=== PATIENT | female | born 1955 | race Caucasian/White ===

== ENCOUNTER 2017-05-18 12:24 | Emergency (ER) | payer OTHER ==
[~2017-05-18] VITALS: Ht 172.7 cm; Wt 54.9 kg
--- NOTE | 2017-05-18 12:31 | NUR ---
Code Stroke activated per Dr. Hussain kumar.
--- NOTE | 2017-05-18 12:33 | NUR ---
Telestroke called, Dr. Nixon spoke with Dr. Logan via telephone.
--- NOTE | 2017-05-18 12:38 | NUR ---
Pt to CT via [facility] with ACLS guidelines in place.
[2017-05-18 12:42] LABS: BASOPHILS % (AUTO) 0.6 % (0.0-2.0); EOSINOPHILS # (AUTO) 0.1 K/uL (0.0-0.7); EOSINOPHILS % (AUTO) 3.3 % (0.0-7.0); HEMATOCRIT 41.5 % (37-47); HEMOGLOBIN 13.7 G/DL (12.0-16.0); LYMPHOCYTES # (AUTO) 1.6 K/UL (0.8-4.8); LYMPHOCYTES % (AUTO) 38.8 % (20.5-51.5); MEAN CORPUSCULAR HEMOGLOBIN 29.1 UUG (27.0-31.0); MEAN CORPUSCULAR HGB CONC 33 g/dL (32.0-37.0); MEAN CORPUSCULAR VOLUME 88.3 FL (81.0-99.0); MONOCYTES # (AUTO) 0.4 K/UL (0.1-1.30); NEUTROPHILS # (AUTO) 2.2 K/UL (1.8-8.9); NEUTROPHILS % (AUTO) 48.3 % (38.5-71.5); PLATELET COUNT (AUTO) 280 K/UL (150-450); WHITE BLOOD COUNT (AUTO) 4.3 K/UL (4.0-11.2)
[2017-05-18] MEDS ORDERED: IV NORMAL SALINE 500 ML BAG IV ONE (12:45)
[2017-05-18 12:49] LABS: CREATININE 1.1 mg/dL (0.6-1.3); POTASSIUM 4.2 mmol/L (3.5-5.1)
[2017-05-18 12:54] LABS: BILIRUBIN,DIRECT 0.1 mg/dL (0.0-0.2); BILIRUBIN,TOTAL 0.4 mg/dL (0.2-1.0); TOTAL PROTEIN, SERUM 8.1 g/dL (6.4-8.2)
--- NOTE | 2017-05-18 13:06 | NUR ---
Patient is intermittently tearful & mild aphasia noted when patient is crying. Patient says that she is upset about the weakness of her hands & heaviness of her face.
[2017-05-18] MEDS ORDERED: ASPIRIN 325 MG TABLET PO ONE (13:15)
[2017-05-18 13:26] VITALS: BP 162/100
[2017-05-18] MEDS ORDERED: LABETALOL HCL 100 MG/20 ML VIAL IV ONE (13:30)
[2017-05-18] MEDS ORDERED: LABETALOL HCL 100 MG/20 ML VIAL ONE (13:34)
[2017-05-18] MEDS ORDERED: ASPIRIN 325 MG TABLET ONE (13:34)
--- NOTE | 2017-05-18 14:00 | NUR ---
Patient ambulated to the bathroom with steady gait. Patient says she feel much better, pending [facility] transfer information at this time.
--- NOTE | 2017-05-18 14:09 | NUR ---
Patient's doctor-friend is at bedside.
--- NOTE | 2017-05-18 14:47 | NUR ---
Patient Tranfers to outside Facility: [facility] room 5302-B Physician: Dr Tellez Location: [facility] [place] nurse : Katherine Mchugh south tel # [phone] ACLS ambulance: [id number]
--- NOTE | 2017-05-18 16:16 | NUR ---
[facility] ambulance is now here.
--- NOTE | 2017-05-18 16:23 | NUR ---
Nurse Enio Miller of [facility] ACLS ambulance accepted hands off report.
== END 2017-05-18 16:31 | disposition short-term general hospital (02) ==
LOC: ER 12:24
DX: G45.8 Other transient cerebral ischemic attacks and related syndromes (principal); G43.909 Migraine, unspecified, not intractable, without status migrainosus; E03.9 Hypothyroidism, unspecified
CPT/HCPCS: 36415; 70030-TC; 70450; 71010; 85025; 85730; 93005; A4663; J3490; J7040

== ENCOUNTER 2017-08-05 23:34 | Emergency (ER) | payer OTHER ==
[~2017-08-05] VITALS: Ht 172.7 cm; Wt 54.9 kg
[2017-08-05] MEDS ORDERED: ATOR20TA PO (23:46)
[2017-08-05] MEDS ORDERED: NORT50CA2 PO (23:46)
[2017-08-05] MEDS ORDERED: ASPI81TA31 PO (23:46)
[2017-08-05] MEDS ORDERED: LEVO125T8 PO (23:47)
[2017-08-06 00:47] LABS: BASOPHILS % (AUTO) 0.6 % (0.0-2.0); EOSINOPHILS # (AUTO) 0.1 K/uL (0.0-0.7); EOSINOPHILS % (AUTO) 2.3 % (0.0-7.0); HEMATOCRIT 35.3 % (37-47); LYMPHOCYTES # (AUTO) 1.7 K/UL (0.8-4.8); LYMPHOCYTES % (AUTO) 36.1 % (20.5-51.5); MEAN CORPUSCULAR HEMOGLOBIN 29.9 UUG (27.0-31.0); MEAN CORPUSCULAR HGB CONC 34 g/dL (32.0-37.0); MEAN CORPUSCULAR VOLUME 88.4 FL (81.0-99.0); MONOCYTES # (AUTO) 0.4 K/UL (0.1-1.30); MONOCYTES % (AUTO) 9.4 % (0.0-11.0); NEUTROPHILS # (AUTO) 2.4 K/UL (1.8-8.9); NEUTROPHILS % (AUTO) 51.6 % (38.5-71.5); PLATELET COUNT (AUTO) 211 K/UL (150-450); WHITE BLOOD COUNT (AUTO) 4.6 K/UL (4.0-11.2)
--- NOTE | 2017-08-06 01:09 | NUR ---
Patient discharged to home in stable conditon. Written and verbal after care instructions given. Patient verbalizes understanding of instructions.
== END 2017-08-06 01:14 | disposition home or self-care (01) ==
LOC: ER 23:35
DX: R55 Syncope and collapse (principal); E03.9 Hypothyroidism, unspecified; G43.909 Migraine, unspecified, not intractable, without status migrainosus; Z79.82 Long term (current) use of aspirin; I95.9 Hypotension, unspecified
CPT/HCPCS: 36415; 85025; 93005; 99285; A4663

== ENCOUNTER 2023-09-17 23:58 | Emergency (ER) | payer OTHER ==
[~2023-09-17] VITALS: Ht 165.1 cm; Wt 60.5 kg
[~2023-09-17 23:58] MED LIST: ASPI81TA31 PO; ATOR20TA PO; LEVO125T8 PO; NORT50CA2 PO
[2023-09-18] MEDS ORDERED: ATOR10TA PO (00:14)
[2023-09-18] MEDS ORDERED: LEVO25TA2 PO (00:14)
[2023-09-18 00:35] LABS: BASOPHILS # (AUTO) 0.2 K/UL (0.0-0.2); BASOPHILS % (AUTO) 3.4 % (0.0-2.0); CALCIUM 9.1 mg/dL (8.5-10.1); CARBON DIOXIDE 28 mmol/L (21-32); CHLORIDE 101 mmol/L (98-107); CREATININE 1.2 mg/dL (0.6-1.3); DIFFERENTIAL COMMENT 0; EOSINOPHILS # (AUTO) 0.1 K/uL (0.0-0.7); EOSINOPHILS % (AUTO) 1.3 % (0.0-7.0); GLUCOSE 110 mg/dL (74-106); HEMATOCRIT 36.9 % (31.2-41.9); HEMOGLOBIN 12.4 g/dL (10.9-14.3); LYMPHOCYTES % (AUTO) 22.1 % (20.5-51.5); MEAN CORPUSCULAR HEMOGLOBIN 30.5 uug (24.7-32.8); MEAN CORPUSCULAR HGB CONC 34 g/dL (32.3-35.6); MEAN CORPUSCULAR VOLUME 90.8 fL (75.5-95.3); MONOCYTES # (AUTO) 0.5 K/uL (0.1-1.30); MONOCYTES % (AUTO) 10.8 % (0.0-11.0); NEUTROPHILS # (AUTO) 2.8 K/uL (1.8-8.9); NEUTROPHILS % (AUTO) 62.4 % (38.5-71.5); PLATELET COUNT (AUTO) 185 K/uL (179-408); POTASSIUM 3.7 mmol/L (3.5-5.1); RED BLOOD CELL COUNT(AUTO) 4.07 MIL/uL (3.63-4.92); RED CELL DISTRIBUTION WIDTH 14.6 % (12.3-17.7); SODIUM SERUM 138 mmol/L (136-145); UREA NITROGEN, BLOOD 21 mg/dL (7-18); WHITE BLOOD COUNT (AUTO) 4.5 K/uL (3.8-11.8)
[2023-09-18 00:36] LABS: ETHANOL < 3 MG/DL (0-10)
[2023-09-18 01:46] LABS: *BILIRUBIN,URIN NEGATIVE (NEGATIVE); *CLARITY,URINE CLEAR (CLEAR); *COLOR,URINE YELLOW (YELLOW); *KETONES,URINE NEGATIVE (NEGATIVE); *PROTEIN,URINE NEGATIVE (NEGATIVE); *UROBILINOGEN,URINE 0.2 E.U./dl (NORMAL); LEUKOCYTE ESTERASE ,URINE NEGATIVE (NEGATIVE); NITRITE, URINE NEGATIVE (NEGATIVE); UGLUCOSE NEGATIVE (NEGATIVE)
[2023-09-18 01:48] LABS: *BLOOD, URINE NEGATIVE (NEGATIVE)
[2023-09-18 01:59] LABS: *AMPHETAMINE, URINE NEGATIVE (NEGATIVE); *BARBITURATE, URINE NEGATIVE (NEGATIVE); *BENZODIAZEPINE, URINE NEGATIVE (NEGATIVE); *CANNABINOID, URINE NEGATIVE (NEGATIVE); *COCCAINE, URINE NEGATIVE (NEGATIVE); *OPIATE, URINE NEGATIVE (NEGATIVE); *PHENCYCLIDINE SCREEN,URINE NEGATIVE (NEGATIVE)
[2023-09-18 02:00] LABS: FENTANYL, URINE NEGATIVE (NEGATIVE)
[2023-09-18 03:14] VITALS: BP 138/82; TEMP 98.6; O2SAT 100
== END 2023-09-18 02:50 | disposition home or self-care (01) ==
LOC: ER 09-18
DX: F81.81 Disorder of written expression (principal); R29.810 Facial weakness; G43.909 Migraine, unspecified, not intractable, without status migrainosus; I10 Essential (primary) hypertension; E03.9 Hypothyroidism, unspecified; Z79.899 Other long term (current) drug therapy; Z79.82 Long term (current) use of aspirin; Z60.2 Problems related to living alone
CPT/HCPCS: 36415; 70450; 84443; 84484; 85025; 85730; 93005; A4606; A4663; G0480